=== PATIENT | female | born 1985 | race Caucasian/White ===

== ENCOUNTER 2018-06-25 15:25 | Inpatient (IN) | payer MEDICAID, SELFPAY ==
[2018-06-25 15:41] VITALS: BMI 41.0
[2018-06-25] MEDS: 0.9% Saline Lock 10 ML Syringe IV (16:45)
[2018-06-25 16:56] LABS: Hematocrit 36.9 % (37-47); Hemoglobin 12.1 g/dl (12.0-15.0); Mean Corp Hgb Conc 32.8 g/gl (32-36); Mean Corpuscular Hgb 27.6 pg (27.0-32.0); Mean Corpuscular Volume 84.1 fL (81-99); Mean Platelet Vol. 11.7 fl (6.2-12.0); Platelet Count 328 K/mm3 (150-450); RBC Distribution Width CV 14.7 % (11.6-14.6); RBC Distribution Width SD 43.6 fl (35.1-43.9); Red Blood Count 4.39 M/mm3 (4.2-5.4); Scan Indicated on CBC? Y/N NO; White Blood Count 17.7 K/mm3 (4.4-11.0)
[2018-06-25 17:01] LABS: Protein, Urine (Random) 19.9 mg/dL (<11.9); Protein:Creat Ratio 170 mg/g CRE (0-200)
[2018-06-25 17:12] LABS: Prothrombin Time (Protime)PT. 12.8 SECONDS (11.7-14.9)
[2018-06-25 17:13] LABS: Partial Thromboplast Time 29.6 Seconds (24.1-36.2)
[2018-06-25 17:28] LABS: AST(SGOT) 15 U/L (15-37); Alanine Aminotransfer ALT/SGPT 13 U/L (13-56); Creatinine, Serum 0.64 mg/dL (0.55-1.02); EST Glomerular Filtration Rate 114 mL/min (>60); Est Glom Filt Rate - Afr Amer 138 mL/min (>60); Estimated Creatinine Clearance 104.39 ml/min; Uric Acid 5.4 mg/dL (2.6-6.0)
[2018-06-25 17:32] LABS: Color, Urine Yellow (Yellow); Glucose, Dipstick Normal (Normal); Leukocyte Esterase-Dipstick 500 /ul (Negative); Nitrite-Dipstick Negative (Negative); Occult Blood-Urine 25 /ul (Negative); Protein-Dipstick Negative (Negative); Specific Gravity, Urine 1.015 (1.002-1.030); Urine Bilirubin Dipstick Negative (Negative); Urine Clarity Sl. Cloudy (Clear); Urine Urobilinogen Normal (Normal); Urine pH 6.5 (5.0 - 8.0)
--- NOTE | 2018-06-25 17:33 | PCM.HP.OB ---
- Problem List (1) Gestational hypertension affecting first Status: Acute History Date of Admission: 06/25/18 Final LISA: 07/12/18 Final LISA Source: US <20 weeks Gestational age: 37 Weeks and 4 Days History of this : This is a 32 year-old, G [2], P [0], at 37 weeks gestational age who presented to office today reporting that I just don't feel right. In office patient was noted to have elevated blood pressures 140s/90s, confirmed by True BP. Patient denies severe GARCIA or scotoma, also denies RUQ pain. Consultation with Dr. Posey OB back-up doctor done and decision made to progress forward with IOL at this time as patient meets criteria for GHTN. Allergies bee venom protein (honey bee) Allergy (Verified 06/25/18 15:47) Anaphylaxis latex Allergy (Verified 06/25/18 15:48) Rash Penicillins Allergy (Verified 06/25/18 15:46) Rash prednisone Allergy (Verified 06/25/18 15:47) Anaphylaxis Home Medications: Home Medications Famotidine [Pepcid] 20 mg PO BID 06/25/18 Loratadine [Claritin] 4 mg PO DAILY PRN PRN 06/25/18 Vits [Prenatabs FA ] 1 tab PO DAILY 06/25/18 Smoking Status: Current every day smoker Alcohol: None Number of Fetus(es): 1 Heart Tracing: Baseline 140, moderate variability, + accels, no decels noted. TOCO Analysis: Irregular ctx q 1-3 minutes on tocometer, not palpable at this time. Likely uterine irritability History Past Pregnancies: Past Pregnancies Delivery Date Name GA/Weeks Outcome Route Weight Infant Gender Labor Length Anesthesia Delivery Location Provider FOB SAB Labs: O positive, Abs Neg, HepBsAg Neg, HIV NR, Urine Culture Neg, CBC WNL x 2, Syphilis NR, Rubella Imm, Urine Tox = Neg, Early 1 hour = 143 (H), TSH = 1.5, 3 hour GCT = 76,115, 99, 46 (L), GBS Neg, Expected Delivery Method: Spontaneous Vaginal Describe any other labor & delivery plans:: Patient desires NCB - not planning on an epidural Number of Visits: 19 Review of Systems Constitutional: Denies: Chills, Fever, Weight Change HEENT: Denies: Head Aches, Sinus Congestion, Sinus Drainage Cardiovascular: Denies: Chest Pain, Palpitations Respiratory: Reports: Shortness of breath upon exertion. Denies: Cough, Shortness of breath at rest, Sputum production Gastrointestinal: Denies: Abdominal Pain, Nausea, Vomiting Genitourinary: Denies: Dysuria Musculoskeletal: Reports: Muscle pain - Rt. Side and Rt Flank pain, - - Symphysis and Pubic Bone Pain. Denies: Joint Pain, Joint Tenderness Skin: Denies: Rash, Wounds Neurological: Denies: Numbness, Tingling, Focal weakness Psychiatric: Denies: Anxiety, Depression, Homicidal Ideations, Suicidal Ideations Hematologic/ Lymphatic: Denies: Easy Bruising, Easy Bleeding Physical Exam Vitals: See Nursing Note for vitals - initial BP = 150/80s, most recent BP = 120s/60s. CBC WNL, LFTs WNL, Coags WNL, Urine P/C Ratio = 0.17 General: Alert, Oriented x3, No apparent distress HEENT: Atraumatic, Normocephalic. Negative for: Thyromegaly, Lymphadenopathy Cardiovascular: Regular rate, Regular Rhythm Lungs: Normal air movement Abdomen: Soft, Non Tender, Gravid Extremities:: Other - Trace non-pitting edema in LE noted Neurological: Cranial nerves II-XII grossly intact, Deep Tendon Reflexes 2+/4 and Symmetrical, Neuro grossly intact CYTOLOGY SUPERVISOR: Normal external genitalia. Negative for: Vulvar lesions Estimated gestational size: Appropriate for gestational size Presentation: Cephalic Cervix Dilation (cm): 0.5 Station: -3 Effacement (%): 50 Assessment/Plan All Active Problems Gestational hypertension affecting first (Acute) This is a 32 year-old, G [2], P [0], at 37 weeks gestational age, IOL for GHTN, Category I FHT. P: 1) Patient admitted for IOL - plan for Cytotec PV 25mcg per protocol 2) Pre-eclampsia ruled out at this time 3) Dr. Posey back-up physician notified of admission and is in agreement with plan 4) Reassess cervix PRN or with change to maternal or status Mindy Olmos APRN-CNNhi
[2018-06-25] MEDS: miSOPROStol 25 MCG TABLET VAGINAL ×2 (17:40→21:44)
[2018-06-25 17:46] LABS: Ketone-Dipstick 150 mg/dl (Negative)
[2018-06-25] MEDS: Lactated Ringers 500 ML 999 ML IV (17:53)
[2018-06-25] MEDS: Acetaminophen 325 MG Tablet PO (21:51)
--- NOTE | 2018-06-25 21:58 | PCM.PN.OB ---
Patient Problems: Active and Suspected Problems Gestational hypertension affecting first (Acute) Subjective: S: Patient sitting up in bed talking with partner and friend that are present in room. Patient reports that she is bored and wishes that baby was here already. Patient denies any severe pain at this time; reports that pain she feels down in lower pelvis is like menstrual cramping. Patient reports latex allergy - reaction rash. Patient is not a candidate for cervical medina bulb catheter placement as none are latex free. Consents to SVE at this time with option of membrane sweep and placement of 2nd cytotec dose Objective: See Nursing Notes - patient is normotensive and afebrile FHT baseline 150, moderate variability, + accels, no decels noted Ctx uterine irritability noted SVE = 50/-2, midposition, membrane sweep for + bloody show noted - Physical Exam General: Alert, Oriented x3, Cooperative HEENT: Atraumatic, Normocephalic Lungs: Normal air movement Abdomen: Soft, Non Tender, Gravid, Appropriate for Gestational Age - OP to LOP position by Yunier's noted Extremities: No edema, Capillary Refill Less than 3 Seconds Skin: No rashes, No breakdown Musculoskeletal: No Tenderness to Palpation of Joints or Extremities Neurological: Cranial nerves II-XII grossly intact Psych/Mental Status: Normal Affect, Appropriate, Anxious Weight: 231 lb 7.766 oz Body Mass Index (BMI) 41.0 Laboratory Tests Past 24 Hrs 06/25/18 06/25/18 06/25/18 16:30 16:30 16:30 WBC 17.7 H RBC 4.39 Hgb 12.1 Hct 36.9 L MCV 84.1 MCH 27.6 MCHC 32.8 RDW 14.7 H RDW Differential 43.6 Plt Count 328 MPV 11.7 PT 12.8 INR 1.0 APTT 29.6 Creatinine Estim Creat Clear Calc Est GFR (MDRD) Af Amer Est GFR (MDRD) Non-Af Uric Acid AST ALT Urine Color Urine Clarity Urine pH Ur Specific [place] Urine Protein Urine Glucose (UA) Urine Ketones Urine Occult Blood Urine Nitrite Urine Bilirubin Urine Urobilinogen Ur Leukocyte Esterase U Random Total Protein Urine Creatinine Protein/Creatinin Ratio Blood Type O POSITIVE Antibody Screen NEGATIVE 06/25/18 06/25/18 06/25/18 16:30 16:30 17:15 WBC RBC Hgb Hct MCV MCH MCHC RDW RDW Differential Plt Count MPV PT INR APTT Creatinine 0.64 Estim Creat Clear Calc 104.39 Est GFR (MDRD) Af Amer 138 Est GFR (MDRD) Non-Af 114 Uric Acid 5.4 AST 15 ALT 13 Urine Color Yellow Urine Clarity Sl. Cloudy Urine pH 6.5 Ur Specific [place] 1.015 Urine Protein Negative Urine Glucose (UA) Normal Urine Ketones 150 H Urine Occult Blood 25 H Urine Nitrite Negative Urine Bilirubin Negative Urine Urobilinogen Normal Ur Leukocyte Esterase 500 H U Random Total Protein 19.9 H Urine Creatinine 117.00 Protein/Creatinin Ratio 170 Blood Type Antibody Screen Medical Necessity - Tobacco Use Smoking Status: Current every day smoker Assessment/Plan All Active Problems Gestational hypertension affecting first (Acute) 32 y/o @ 37+4 weeks, IOL for GHTN, Cytotec Induction, Category I FHT P: 1) Continue present management plan - Cytotec 25mcg PV q 4 hours until cervix is ripened enough for initiation of pitocin as patient is not a candidate for cervical ripening by medina catheter given her latex allergy and no latex free catheters on unit with balloon larger than 5cc balloon 2) Reassess cervix PRN with change in maternal and status Mindy MARSH
[2018-06-26] MEDS: miSOPROStol 25 MCG TABLET VAGINAL ×2 (01:49→05:50)
--- NOTE | 2018-06-26 06:10 | PN.OBGYN_ITS ---
Patient Problems: Active and Suspected Problems Gestational hypertension affecting first (Acute) Subjective: Patient is resting in bed at this time. Denies GARCIA, scotoma or RUQ pain. Patient reports continued lower abdominal cramping after each cytotec dose was given. Patient consents to repeat SVE at this time. Objective: VSS, Afebrile. Recent BP = 115/69 FHT 130, moderate variability, + accels, no decels CTX irregular q 2-8 minutes, mildly palpable SVE = Unchanged 2/50/-2, moderately firm, anterior - Physical Exam General: Alert, Oriented x3, Cooperative Lungs: Normal air movement Cardiovascular: Regular rate, Regular Rhythm Abdomen: Soft, Non Tender, Gravid Extremities: No Calf Tenderness, Edema Neurological: Deep Tendon Reflexes 2+/4 and Symmetrical - no clonus noted Psych/Mental Status: Normal Affect Weight: 231 lb 7.766 oz Body Mass Index (BMI) 41.0 Intake and Output for Last 24 Hours 06/24/18 06/25/18 06/26/18 23:59 23:59 23:59 Intake Total 900 / 900 300 / 300 Output Total 450 / 450 400 / 400 Balance 450 / 450 -100 / -100 Laboratory Tests Past 24 Hrs 06/25/18 06/25/18 06/25/18 16:30 16:30 16:30 WBC 17.7 H RBC 4.39 Hgb 12.1 Hct 36.9 L MCV 84.1 MCH 27.6 MCHC 32.8 RDW 14.7 H RDW Differential 43.6 Plt Count 328 MPV 11.7 PT 12.8 INR 1.0 APTT 29.6 Creatinine Estim Creat Clear Calc Est GFR (MDRD) Af Amer Est GFR (MDRD) Non-Af Uric Acid AST ALT Urine Color Urine Clarity Urine pH Ur Specific [place] Urine Protein Urine Glucose (UA) Urine Ketones Urine Occult Blood Urine Nitrite Urine Bilirubin Urine Urobilinogen Ur Leukocyte Esterase U Random Total Protein Urine Creatinine Protein/Creatinin Ratio Blood Type O POSITIVE Antibody Screen NEGATIVE 06/25/18 06/25/18 06/25/18 16:30 16:30 17:15 WBC RBC Hgb Hct MCV MCH MCHC RDW RDW Differential Plt Count MPV PT INR APTT Creatinine 0.64 Estim Creat Clear Calc 104.39 Est GFR (MDRD) Af Amer 138 Est GFR (MDRD) Non-Af 114 Uric Acid 5.4 AST 15 ALT 13 Urine Color Yellow Urine Clarity Sl. Cloudy Urine pH 6.5 Ur Specific [place] 1.015 Urine Protein Negative Urine Glucose (UA) Normal Urine Ketones 150 H Urine Occult Blood 25 H Urine Nitrite Negative Urine Bilirubin Negative Urine Urobilinogen Normal Ur Leukocyte Esterase 500 H U Random Total Protein 19.9 H Urine Creatinine 117.00 Protein/Creatinin Ratio 170 Blood Type Antibody Screen Medical Necessity - Tobacco Use Smoking Status: Current every day smoker Assessment/Plan All Active Problems Gestational hypertension affecting first (Acute) 32 y/o @ 37+5 weeks, IOL for GHTN, Category I FHT P: 1) Placement of 4th Cytotec dose PV, consider initiation of IV Pitocin for labor augmentation after this next dose 2) Encourage PO hydration and movement with position changes 3) Report given to oncoming provider Mindy MARSH
--- NOTE | 2018-06-26 08:18 | PCM.PN.BLA ---
Progress Note At bedside to check on pt. She is doing well. Feeling some ctx's. Denies GARCIA, vision changes, upper abd pain, N/V. BP's have been normal. Category 1 tracing. Discussed option for medina bulb placement with pt. She has a latex allergy, and states when she uses latex condoms she has severe vaginal irritation that is intolerable for her. Only latex free medina available is 5cc. Discussed option of trying medina and the benefits of this. Pt desires to not have medina placed, and is okay with pitocin. Will start pitocin and then AROM when able. Pt still undecided on epidural. She is leaning towards no epidural.
[2018-06-26] MEDS: Lactated Ringers 1,000 ML 50 ML IV (09:34)
[2018-06-26] MEDS: Oxytocin 30 units/NS 500 ml 30 UNITS/500 ML IV.SOLN IV (09:37)
[2018-06-26] MEDS: Famotidine 20 MG Tablet PO ×2 (11:01→19:43)
--- NOTE | 2018-06-26 12:51 | PCM.PN.BLA ---
Progress Note At bedside to check on pt. She is feeling the ctx's, minimally uncomfortable. Pit at 10 mu/min. Category 1 tracing. Had 1 mild range BP, remaining normal. Discussed rechecking cvx and if still 2cm placing medina. Pt does not want medina at this time. Continue titrating pit at this time.
--- NOTE | 2018-06-26 17:24 | PCM.PN.BLA ---
Progress Note pt seen at bedside, very anxious. VE performed- 1.5/60/-2. Pt was admitted on 06/25/18 for GEST HTN IOL. pt has been seen in office with elevated BP on arrivals and then normal TRUBP after resting. pt here during IOL has had majority Normal range BPS- a few elevated during times of anxiety. Pt is asymptomatic- no headaches, visual changes, RUQ pain, No clonus and +2DTR. I explained options to patient. 1) Place medina catheter- stop pitocin for 2hours allow her to eat dinner and restart IOL- Pt does not HAVE Anaphylactic reaction to Latex- reports is able to blow up a balloon with mouth without rash/other side effect- only irritation with latex condoms. I explained this is NOT contraindication to use latex catheter. 2) Continue IOL with Pitocin 3) If repeat PRE E labs normal and remains asymptomatic with normal range BP may Dc home with return to L&D on friday06/28/18 for NST and BP check. Pt and would like to discuss options - pt reports is very anxious and feels like she may want to go home.
--- NOTE | 2018-06-26 17:40 | PCM.PN.BLA ---
Progress Note After patient and had time to discuss options pt has opted for dc home. pt understands that she will need to return to hospital on Friday06/28/18 at 9am for NST and BP check. Will check PRE E labs today prior to her dc home. PRE E s/sx were reviewed with patient by myself and she understands if she were to experience anything that she should return to hospital. Pt reports she feels less anxious now as she was not comfortable with IOL at this time. If dc'd home from hospital friday after NST then she understands she will be following up in office early next week.
[2018-06-26 18:16] LABS: Hematocrit 38.1 % (37-47); Hemoglobin 12.3 g/dl (12.0-15.0); Mean Corp Hgb Conc 32.3 g/gl (32-36); Mean Corpuscular Volume 83.6 fL (81-99); Mean Platelet Vol. 11.2 fl (6.2-12.0); Platelet Count 318 K/mm3 (150-450); RBC Distribution Width CV 14.6 % (11.6-14.6); RBC Distribution Width SD 44.5 fl (35.1-43.9); Red Blood Count 4.56 M/mm3 (4.2-5.4)
[2018-06-26 18:17] LABS: Scan Indicated on CBC? Y/N NO
[2018-06-26 18:25] LABS: Prothrombin Time (Protime)PT. 13.4 SECONDS (11.7-14.9)
[2018-06-26 18:26] LABS: Partial Thromboplast Time 29.2 Seconds (24.1-36.2)
[2018-06-26 18:28] LABS: Protein, Urine (Random) 24.4 mg/dL (<11.9); Protein:Creat Ratio 169 mg/g CRE (0-200)
[2018-06-26 18:41] LABS: AST(SGOT) 12 U/L (15-37); Alanine Aminotransfer ALT/SGPT 11 U/L (13-56); Creatinine, Serum 0.72 mg/dL (0.55-1.02); EST Glomerular Filtration Rate 100 mL/min (>60); Est Glom Filt Rate - Afr Amer 121 mL/min (>60); Estimated Creatinine Clearance 92.79 ml/min; Uric Acid 5.6 mg/dL (2.6-6.0)
[2018-06-26] MEDS: Acetaminophen 325 MG Tablet PO (19:43)
--- NOTE | 2018-06-27 06:40 | PN.OBGYN_ITS ---
Patient Problems: Active and Suspected Problems Gestational hypertension affecting first (Acute) Subjective: pt seen at bedside, doing well. pt is requesting Dc at this time. pt is declining IOL. pt denies CP, Headaches, visual changes, RUQ pain. pt verbalized understanding of smoking cessation, rest and if symptoms arise she needs to return to hospital immediately. Pt understands [facility] for BP check and OB exam. - Physical Exam General: Alert, Oriented x3 Neurological: Cranial nerves II-XII grossly intact Weight: 105 kg Body Mass Index (BMI) 41.0 Intake and Output for Last 24 Hours 06/25/18 06/26/18 06/27/18 23:59 23:59 23:59 Intake Total 900 / 900 1800 / 1800 Output Total 450 / 450 500 / 500 Balance 450 / 450 1300 / 1300 Laboratory Tests Past 24 Hrs 06/26/18 06/26/18 06/26/18 17:50 17:50 17:50 WBC 17.0 H RBC 4.56 Hgb 12.3 Hct 38.1 MCV 83.6 MCH 27.0 MCHC 32.3 RDW 14.6 RDW Differential 44.5 H Plt Count 318 MPV 11.2 PT 13.4 INR 1.0 APTT 29.2 Creatinine Estim Creat Clear Calc Est GFR (MDRD) Af Amer Est GFR (MDRD) Non-Af Uric Acid AST ALT U Random Total Protein 24.4 H Urine Creatinine 144.00 Protein/Creatinin Ratio 169 06/26/18 17:50 WBC RBC Hgb Hct MCV MCH MCHC RDW RDW Differential Plt Count MPV PT INR APTT Creatinine 0.72 Estim Creat Clear Calc 92.79 Est GFR (MDRD) Af Amer 121 Est GFR (MDRD) Non-Af 100 Uric Acid 5.6 AST 12 L ALT 11 L U Random Total Protein Urine Creatinine Protein/Creatinin Ratio Medical Necessity - Tobacco Use Smoking Status: Current every day smoker Assessment/Plan All Active Problems Gestational hypertension affecting first (Acute) 32yo @ 37+ wks gestation with GEST HTN - Attempted IOL - not progressing well and declining medina bulb for mechanical dilation. Pt declining further IOL at this time and requesting DC home. 1) monitored BPs overnight with NST today- BPs normal overnight and pt remains asymptomatic. 2) PRE E labs normal 3) Discussed with patient will need to come to office Friday06/29/18 at 9am for OB/BP check 4) S/Sx of pre e reviewed- pt will return to hospital if any concerns 5) DC HOME today 6) advised to avoid smoking
[2018-06-27 06:54] VITALS: BP 114/56; PULSE 82; RESP 16; TEMP 37.6; O2SAT 99
== END 2018-06-27 07:25 | disposition home or self-care (01) | DRG 566 ==
PROVIDERS: Advanced Practice Midwife; Obstetrics & Gynecology; Admitting Provider Obstetrics & Gynecology; Visit Provider Obstetrics & Gynecology
DX: O13.3 Gestational [pregnancy-induced] hypertension without significant proteinuria, third trimester (principal); Z3A.37 37 weeks gestation of pregnancy; O99.333 Smoking (tobacco) complicating pregnancy, third trimester; F17.200 Nicotine dependence, unspecified, uncomplicated; O61.0 Failed medical induction of labor
CPT/HCPCS: 59025; 59050; 81002; 82565; 82570; 84156; 84450; 84460; 84550; 85027; 85610; 85730; 86850; 86900; J7120; A4216

== ENCOUNTER 2018-07-07 20:00 | Inpatient (IN) | payer MEDICAID, SELFPAY ==
[2018-07-07 20:26] VITALS: BMI 41.0
[2018-07-07] MEDS: 0.9% Normal Saline 100 ML IV.SOLN. INTRA-UTER (20:56)
--- NOTE | 2018-07-07 20:59 | HP.PCM_ITS ---
History Date of Admission: 06/25/18 Final LISA: 07/12/18 Final LISA Source: US <20 weeks Gestational age: 39 Weeks and 2 Days History of this : This is a 32 year-old, @ 39.2 wks here for IOL for Gestational HTN. pt was declining IOL at earlier time. Allergies bee venom protein (honey bee) Allergy (Verified 06/25/18 15:47) Anaphylaxis latex Allergy (Verified 06/25/18 18:07) Rash Penicillins Allergy (Verified 06/25/18 15:46) Rash prednisone Allergy (Verified 06/25/18 15:47) Anaphylaxis Home Medications: Home Medications Famotidine [Pepcid] 20 mg PO BID 06/25/18 Loratadine [Claritin] 4 mg PO DAILY PRN PRN 06/25/18 Vits [Prenatabs FA ] 1 tab PO DAILY 06/25/18 Smoking Status: Current every day smoker Alcohol: None Number of Fetus(es): 1 Heart Tracin mod seda, +accels no decels TOCO Analysis: occasional History Past Pregnancies: Past Pregnancies Delivery Date Name GA/Weeks Outcome Route Weight Infant Gender Labor Length Anesthesia Delivery Location Provider FOB Labs: GBS neg, Syphilis neg, rub imm, O+, Hep b Neg, HIV NR Expected Delivery Method: Spontaneous Vaginal Review of Systems Eyes: Denies: Blurred vision, Vision Change HEENT: Denies: Head Aches Physical Exam General: Alert, Oriented x3 Abdomen: Soft, Non Tender, Gravid Neurological: Cranial nerves II-XII grossly intact PATIENT RELATIONS LIAISON: Normal external genitalia Estimated gestational size: Appropriate for gestational size Presentation: Cephalic Cervix Dilation (cm): 1 Station: -3 Effacement (%): 60 Assessment/Plan All Active Problems Gestational hypertension affecting first (Acute) This is a 32 year-old, G 2P0 @ 39.2, IOL for gestational HTN 1) admit to L&D 2) monitor FHR/TOCO 3) Anticipate 4) CYTOTEC/TORRES 5) Epidural if requested for pain 6) Monitor BPs
[2018-07-07] MEDS: 0.9% Saline Lock 10 ML Syringe IV (21:10)
[2018-07-07 21:40] LABS: Hematocrit 36.9 % (37-47); Hemoglobin 11.8 g/dl (12.0-15.0); Mean Corpuscular Hgb 26.6 pg (27.0-32.0); Mean Corpuscular Volume 83.1 fL (81-99); Mean Platelet Vol. 11.1 fl (6.2-12.0); Platelet Count 337 K/mm3 (150-450); RBC Distribution Width CV 14.9 % (11.6-14.6); RBC Distribution Width SD 45.3 fl (35.1-43.9); Red Blood Count 4.44 M/mm3 (4.2-5.4); White Blood Count 15.8 K/mm3 (4.4-11.0)
[2018-07-07] MEDS: miSOPROStol 25 MCG TABLET PO (21:41)
[2018-07-07 21:44] LABS: Scan Indicated on CBC? Y/N NO
[2018-07-07] MEDS: Acetaminophen 325 MG Tablet PO (22:40)
[2018-07-08] VITALS (10 sets, daily range): BP systolic 119–142; BP diastolic 64–82; PULSE 93–113; RESP 16–22; TEMP 36.4–37.4; O2SAT 94–98
[2018-07-08] MEDS: Oxytocin 30 units/NS 500 ml 30 UNITS/500 ML IV.SOLN IV (03:47)
[2018-07-08] MEDS: Lactated Ringers 1,000 ML 50 ML IV ×2 (03:47→15:20)
--- NOTE | 2018-07-08 09:17 | PCM.PN.OB ---
Subjective: Patient doing well, family at bedside. Discomfort with contractions but coping well. Objective: FHT 135, moderate variability, accels, no decels, Category 1 TOCO: unable to trace contractions or palpate. Patient visibly in discomfort with contractions. AROM for clear fluid, IUPC placed Cervix: 5cm/80%/-2, head well applied. - Physical Exam Weight: 231 lb 7.766 oz Body Mass Index (BMI) 41.0 Laboratory Tests Past 24 Hrs 07/07/18 07/07/18 21:10 21:10 WBC 15.8 H RBC 4.44 Hgb 11.8 L Hct 36.9 L MCV 83.1 MCH 26.6 L MCHC 32.0 RDW 14.9 H RDW Differential 45.3 H Plt Count 337 MPV 11.1 Blood Type O POSITIVE Antibody Screen NEGATIVE Medical Necessity - Tobacco Use Smoking Status: Current every day smoker Assessment/Plan All Active Problems (Last Updated 07/07/18 @ 20:57 by Kristel Serrano MD) Gestational hypertension affecting first (Acute) A: Active labor, progressing Category 1 FHT P: 1) Continue with active management 2) Reviewed option for IUPC due to inability to trace uterine contractions and safety of Pitocin, patient agreed to procedure and IUPC placement. 3) notified of patient status. 4) Desires nitrous oxide. Epidural at patient request.
[2018-07-08] MEDS: Nalbuphine 10 MG/ML Ampul IV (11:20)
[2018-07-08] MEDS: fentaNYL-bupivacaine (epidural) 100 ML BAG EPIDURAL (12:35)
--- NOTE | 2018-07-08 12:55 | PCM.PN.OB ---
Subjective: Doing well with epidural, resting in bed. Family at bedside. Objective: FHT: 120, moderate varaiblity, accels, occassional variable decel, Category 2 FHT TOCO: every 2-3 minutes, adequate. Cervix 6cm/90%/-2, ROT. - Physical Exam Weight: 231 lb 7.766 oz Body Mass Index (BMI) 41.0 Laboratory Tests Past 24 Hrs 07/07/18 07/07/18 21:10 21:10 WBC 15.8 H RBC 4.44 Hgb 11.8 L Hct 36.9 L MCV 83.1 MCH 26.6 L MCHC 32.0 RDW 14.9 H RDW Differential 45.3 H Plt Count 337 MPV 11.1 Blood Type O POSITIVE Antibody Screen NEGATIVE Medical Necessity - Tobacco Use Smoking Status: Current every day smoker Assessment/Plan All Active Problems (Last Updated 07/07/18 @ 20:57 by Kristel Serrano MD) Gestational hypertension affecting first (Acute) A: Active labor, progressing Category 2 FHT P: 1) Continue with active management 2) Epidural effective 3) notified of patient status.
[2018-07-08] MEDS: Lactated Ringers 1,000 ML 999 ML IV (17:30)
--- NOTE | 2018-07-08 18:28 | PCM.PN.BLA ---
Progress Note Present at bedside with patient and FOB after 3rd episode of a prolonged deceleration in the heart rate, followed by marked variability with decelerations to 90 bpm. Pit was turned off, O2 on, and position changes started. FHT recovered to 120/mod seda/no accels/no decels. Cvx 7/80/-1. Discussed with patient and FOB that I recommend a section for intolerance to labor given she has had 3 episodes of bradycardia. Unable to titrate pitocin at this time. Discussed option to continue with induction, with the risk of needing an emergent section. Reviewed risks and benefits of a primary section, and of continuing with attempting an induction. Patient and FOB agreeable to for intolerance to labor.
[2018-07-08] MEDS: Sodium Citrate/Citric Acid 30 ML UDC PO (18:35)
[2018-07-08] MEDS: Oxytocin 30 units/NS 500 ml 30 UNITS/500 ML IV.SOLN 167 UNITS IV (19:17)
--- NOTE | 2018-07-08 20:10 | PLAC_PTH ---
PATIENT: ROWENA DE PAZ LOC: [facility] U#:[id number] AGE/SX: 32/F ROOM: WP010 RE07/07/[address]: Dr. Keira Bardales DO : 1985 BED: 1 DIS: 07/10/2018 SPEC #: [id number] RECD: 07/09/18 02:17 STATUS: KARISSA REOlivia #: [id number] RENUKA: 07/08/18 20:[address]: Keira Bardales DEPT: SURGICAL PATHOLOGY RECD BY: Tu Doran ENTERED: 07/09/18 11:15 SP TYPE: PLACENTA OTHR DR: No Primary Care Phys Tissues: Placenta, NOS Procedures: Surgery Specimen Level V HEADER OPERATION: section PRE-OP DIAGNOSIS: intolerance to labor, PLTCS TISSUE SUBMITTED: Placenta MICROSCOPIC DIAGNOSIS August placenta (543 gm): Umbilical cord - trivascular with no inflammation. Placental membranes - mild acute decidual inflammation. Placental disc - increased intraparenchymal fibrin plaques, intravillous congestion and intervillous congestion. AM:ben 07/13/18 MICROSCOPIC DESCRIPTION Slides are reviewed. GROSS DESCRIPTION SPECIMEN: PLACENTA / CLINICAL INFORMATION: A. Weight: 3.195 kg B. Gestational Age: 39 weeks C. Sex: Male PLACENTAL WEIGHT (POST FIXATION): 543 gm PLACENTAL DIMENSIONS: 18 x 16 x 3.5 cm PLACENTAL SHAPE: Usual ovoid PLACENTAL WEIGHT FOR GESTATIONAL AGE: Within 10-99th percentile MEMBRANES - Present A. Insertion: Marginal B. Site of rupture from edge: At edge of placental disc C. Color of membrane: Whalen-kelsey D. Abnormalities: None UMBILICAL CORD - Present A. Color: Whalen-kelsey B. Insertion: Near central C. Length: 25 cm D. Diameter: 1.2 cm E. Number of vessels: Three F. Abnormalities: None PLACENTAL DISC - Present A. Color of surface: Whalen-kelsey B. surface abnormalities: None C. Maternal cotyledons: Intact with minimal tears D. Attached retro placental clot: No clot E. Cut surface: Dark red and spongy F. Lesions: Serial section reveal a firm, whalen-white lesion at the edge of placental disc measuring 3 x 2 x 1.2 cm. G. Separate clot: Absent SECTIONS SUBMITTED: 1. Membrane roll and umbilical cord ( end notched) 2. Placental disc, and maternal surfaces, lesion 3. Placental disc, and maternal surfaces 4. Placental disc, and maternal surfaces AM:ben 07/10/18 TC:5 CPT: 13275
--- NOTE | 2018-07-08 20:30 | OP.PCM_ITS ---
Problem List (1) intolerance to labor, delivered, current hospitalization Status: Acute (2) Gestational hypertension affecting first Status: Acute Report of Operation Date of Procedure: 07/08/18 Pre-Operative Diagnosis: 39 wk gestation, gHTN, intolerance to labor Post-Operative Diagnosis: As above Surgery/Procedure Performed:: PLTCS via pfanennstiel incision Description of Surgical Findings:: Normal uterus and bilateral adnexa. Fetus in vertex presentation. Clear fluid. Intact placenta that was normal appearing with a 3 vessel cord Indications: The patient was induced at 39 wks for gHTN. She was a medina and cytotec induction, followed by pitocin and AROM. She made it to 7 cm dilated. She had 3 episodes of prolonged heart rate decelerations. Unable to titrate pitocin given intolerance to labor. superintendent communications: Sara Bacon Type of Anesthesia:: Epidural Estimated Blood Loss (mL): 500 Fluids Replaced: 900 Description of Procedure: Patient was taken to the operating where epidural anesthesia was found to be adequate. She was prepped and draped in the usual sterile fashion. A pfannenstiel incision was made with a scalpel and carried down to the fascia. A fascial incision was made, and the fascia was extended laterally using Flower scissors. Linden clamps were then used to elevated the fascia superiorly and using the Bovie cautery, the fascia was dissected off of the rectus muscles. The same was done inferiorly. The rectus muscles were then in the midline. The peritoneum was entered sharply, and extended superior and inferior with good visualization of the bladder. A low transverse incision was made on the uterus. The fetus was delivered in vertex position. The cord was clamped and cut after a 60 sec delay and handed off to nursing staff. The placenta was removed with manual extraction and the uterus cleared of all clot and debris. The bilateral adnexa were noted to be normal. The uterus was closed with vicryl in 2 layers, the first in a running locked fashion. The incision was inspected and noted to be hemostatic. The fascia was then closed with vicryl. The subcutaneous layer was irrigated, and closed with vicryl. The skin was then closed in a subcuticular fashion. Instrument counts were correct. The patient was taken to the recovery room in good condition. - Complications None - Admit VTE Documentation VTE Present on Admission: No VTE Mechan Device Prophylaxis: SCD's VTE Pharm Prophylaxis ordered?: No Delivery Classification: MARY Gestational age: 39w3d Indications: intolerance to labor Amniotic Membrane Rupture Type: Artificial Amniotic Fluid Description: Clear Placenta Disposition: Sent to Pathology Drain: Medina to straight drain Fluids Replaced: 900 Cord Entanglement: None Cord Vessel Description: 3 Vessels Esitmated Blood Loss (ml): 500 Gender: Male Delayed cord clamping: Yes Pre-op Antibiotic Given: Clindamycin 600mg IV x1 and Gentamicin 1.5mg/kg IV x1 Pt instructed on risks of surgery: Bleeding, Infection, Injury to surrounding structure(s) including bowel and bladder Complications: None - Admit VTE Documentation VTE Present on Admission: No VTE Mechan Device Prophylaxis: SCD's VTE Pharm Prophylaxis ordered?: Yes Baby B - Information Amniotic Membrane Rupture Type: Spontaneous Presentation: Vertex - Operative Information Cord Entanglement: None Cord Vessel Description: 3 Vessels B gender: Male (1 minute): 9 (5 minute): 9
[2018-07-09] VITALS (16 sets, daily range): BP systolic 99–142; BP diastolic 60–89; PULSE 77–97; RESP 14–20; TEMP 36.1–36.9; O2SAT 95–99
--- NOTE | 2018-07-09 00:15 | NURSING ---
Epidural catheter removed, blue tip intact. No bleeding noted. Gauze 4x4 and latex free tape applied over site. Pt. tolerated well.
[2018-07-09] MEDS: Ketorolac 30 MG/ML Syringe IV ×5 (00:48→23:51)
[2018-07-09 02:18] LABS: Pathology Specimen OB SEE PATHOLOGY REPORT
[2018-07-09] MEDS: Acetaminophen 500 MG Tablet 1000 MG PO (04:19)
[2018-07-09] MEDS: Lactated Ringers 1,000 ML 100 ML IV (05:35)
[2018-07-09 06:16] LABS: Hematocrit 25.2 % (37-47); Hemoglobin 7.9 g/dl (12.0-15.0); Mean Corp Hgb Conc 31.3 g/gl (32-36); Mean Corpuscular Hgb 26.9 pg (27.0-32.0); Mean Corpuscular Volume 85.7 fL (81-99); Mean Platelet Vol. 11.5 fl (6.2-12.0); Platelet Count 203 K/mm3 (150-450); RBC Distribution Width CV 14.7 % (11.6-14.6); RBC Distribution Width SD 44.2 fl (35.1-43.9); Red Blood Count 2.94 M/mm3 (4.2-5.4); White Blood Count 13.5 K/mm3 (4.4-11.0)
[2018-07-09 06:20] LABS: Scan Indicated on CBC? Y/N NO
--- NOTE | 2018-07-09 08:04 | PN.OBGYN_ITS ---
Patient Problems: Active and Suspected Problems (Last Updated 07/07/18 @ 20:57 by Kristel Duckworth MD) intolerance to labor, delivered, current hospitalization (Acute) Subjective: Patient doing well this morning. Tolerating reg diet without nausea or vomiting. Has not yet ambulated. Medina in place. . Denies lightheadedness, dizziness, CP, SOB, uncontrolled pain, leg pain. Pain is well controlled. Lochia normal. - Physical Exam General: Alert, No apparent distress HEENT: Atraumatic Lungs: - - No increased resp effort Abdomen: Soft, Non Tender, Non-Distended, - - Dressing in place over incision and c/d/i Extremities: No edema, No Calf Tenderness Skin: No rashes Neurological: Neuro grossly intact Psych/Mental Status: Normal Affect, Appropriate Vital Signs Temp Pulse Resp BP Pulse Ox 98.4 F 84 17 99/60 96 07/09/18 04:14 07/09/18 07:37 07/09/18 07:37 07/09/18 04:14 07/09/18 07:37 Oxygen Delivery Method Room Air Weight: 231 lb 7.766 oz Body Mass Index (BMI) 41.0 Intake and Output for Last 24 Hours 07/07/18 07/08/18 07/09/18 23:59 23:59 23:59 Intake Total 4901 / 4901 2181 / 2181 Output Total 1350 / 1350 1400 / 1400 Balance 3551 / 3551 781 / 781 Laboratory Tests Past 24 Hrs 07/09/18 05:34 WBC 13.5 H RBC 2.94 L Hgb 7.9 L Hct 25.2 L MCV 85.7 MCH 26.9 L MCHC 31.3 L RDW 14.7 H RDW Differential 44.2 H Plt Count 203 MPV 11.5 Medical Necessity - Tobacco Use Smoking Status: Current every day smoker Assessment/Plan All Active Problems (Last Updated 07/07/18 @ 20:57 by Kristel Serrano MD) Gestational hypertension affecting first (Acute) intolerance to labor, delivered, current hospitalization (Acute) POD#1 s/p PLTCS for intolerance to labor after IOL for gHTN - gHTN: Continue to monitor BP - AF, VSS - Pain controlled - - Hgb 7.9 this AM. Pt has no symptoms of anemia but has not ambulated yet. Will repeat in AM - D/c medina and encourage ambulation - Dispo: Routine post-op care
--- NOTE | 2018-07-09 08:06 | DCINST_ITS ---
Discharge Diet: No Restrictions Discharge Activity: May not drive while taking narcotic pain medications., May Shower May shower in (days): 0 May resume sexual activity in: 4-6 weeks Weight Bearing Status: Weight bearing as tolerated Lifting Restrictions: No lifting > 25 pounds Call your doctor if your incision/area has: Sudden Increased Bleeding, Increased Pain/ Swelling, Increased Redness, Foul Smelling Discharge Call your doctor if you observe: Fever of 101 or Higher, Inability to urinate, Inability to have a bowel movement, Using more than one pad per hour, Shortness of breath, Dizziness, Fainting spells, Chest pain, Increased palpitations (irregular heartbeat), Calf discomfort, Uncontrolled pain Suture Line Care: Avoid Pulling/Pushing Remove Dressing in (days):: 5 - 5 days from section Cleanse incision/area with: Soap & Water Instructions: Discharge Instructions for Section (), After a Additional Instructions: If you experience any of the following, contact your healthcare provider. * Bleeding that soaks a pad every hour for 2 hours * Fever 100.4 or higher * Unrelieved incision or abdominal pain * Swelling, redness, discharge or bleeding from your incision or episiotomy site * Your incision begins to separate * Problems urinating (including inability to urinate or burning while urinating). * Visual changes * Severe headache * Flu-like symptoms * Pain or redness in one of both of your breasts * Pain, warmth, tenderness or swelling in your legs, especially the calf area * Frequent nausea and vomiting * Symptoms of depression or anxiety If you experience any of the following, call 911 or go to the nearest Emergency Room. * Chest pain * Problems breathing * Seizure activity * Partial or complete paralysis of a body part, slurred speech, weakness or drooping of the face, or a sudden inability to walk or hold your balance Allergies/Adverse Reactions: Allergies bee venom protein (honey bee) Allergy (Verified 06/25/18 15:47) Anaphylaxis latex Allergy (Verified 06/25/18 18:07) Rash Penicillins Allergy (Verified 06/25/18 15:46) Rash prednisone Allergy (Verified 06/25/18 15:47) Anaphylaxis Medications to take at Discharge Famotidine [Pepcid] 20 mg PO BID 06/25/18 Loratadine [Claritin] 4 mg PO DAILY PRN PRN 06/25/18 Vits [Prenatabs FA ] 1 tab PO DAILY 06/25/18 Follow-Up: Call to make an appointment with your doctor for an incision check in 1-2 weeks. You will also need a 6 week post- follow up appointment. Test results from this visit will be discussed in further detail at your follow- up appointment, if applicable. Please Follow Up With: Keira Bardales, When: 1 week for incision check. 6 weeks for appointment Primary Care Physician: Care Physician,No Primary [Primary Care Provider] -
[2018-07-09] MEDS: Enoxaparin 40 MG/0.4 ML Syringe SC (08:44)
[2018-07-09] MEDS: Famotidine 20 MG Tablet PO ×2 (08:44→21:45)
--- NOTE | 2018-07-09 12:12 | CASEMGMT ---
Addendum entered and electronically signed by Paloma Hung 07/28/18 10:17: Reviewed and approve SYSTEMS REQUIREMENTS PLANNER student rn intern documentation below. At time of assessment, direct consultation regarding outcome of assessment occurred between rn intern and this keno writer. -MADIHA Hdez, PULP ROLLER Original Note: Social Work Labor and Delivery Date of referral:07/09/18 time of referral: 0836 referred by: Dr. Keira Bardales Date of intervention: 07/09/18 Time of intervention: 1110am Reason for Referral: history of anxiety History obtained from: medical record, mother of baby Sylvester Maloney (MOB) Household composition: MOB lives with Father of baby Tu Castrejon (FOB). MOB reports to be no history of domestic violence. Patients parent/guardian status: MOB and FOB have known each other for 11 years but have been together for 3 years. MOB and FOB do not have any other children Medical History: WALDO is to 1 after the of their baby boy who has yet to be named. MOB started PNC at 9 weeks. Baby boy was born on 07/08/18 at 7lbs 1oz and scores of 9 and 9. Educational Status: MOB has GED. Both parents confirmed to be able to read, write, and comprehend. Financial Status: MOB is currently unemployed. FOB works for [employer] in [place]. Infant Supplies: MOB and FOB report to be prepared with supplies such as bassinet, crib, car seat, clothing, diapers, wipes, and planning to get a breast pump. Childcare/Givers: MOB and FOB will be primary caregivers. FOB's mother and MOB's mother, sister, and aunt will be supplemental caregivers. Transportation: MOB and FOB denied any issues with transportation. Programs/Agencies involved: MOB has healthcare through job and Family Services. MOB and FOB have [place] application and plan to have appointment next week. MOB denied [facility] referral and plans to contact [facility] herself. Children Services/Legal Issues: MOB denied any legal issues or history with children services for self and FOB. Behavioral Health Issues: Mental Health: MOB does not identify with any formal diagnoses. MOB reported to have anxiety at times, especially during labor due to fear of pain and needles and being induced. MOB denies suicidal ideations past or present. Substance Use History: MOB denied any history or current substance use. MOB does smoke cigarettes. Family History: MOB's brother had suicidal ideations during March 2018. Drug Screens: MOB tested negative at [facility] visit on 12/11/17. Family Social/Stressors: MOB was stressed at the time of brother suicidal thoughts and reports that her brother has since then been doing better and their relationship is improving. Support Systems: MOB identified FOB to be main support system. MOB's mother, sister, aunt, and grandma are also supports. FOB's mother is another support. PDD/Shaken Baby/ Safe Sleeping: MOB and FOB reviewed PPD, Safe sleeping, and shaken baby with social group worker rn intern. Both parents understood and acknowledged information. ASSESSMENT: MOB and FOB were in room together with baby boy laying on FOB's chest. FOB and MOB were attentive and engaged in conversation with social group worker rn intern for duration of conversation regarding general information. FOB left room so MOB could speak privately. MOB spoke about brother with suicidal ideations and reports that he has since gotten his life together and their personal relationship has improved. MOB also reported to have perfect relationship with other brother. MOB's anxiety was increased during first attempt of induction as MOB felt baby was not ready and her body was not ready. MOB reported fear of needles and pain did not help anxiety during labor. MOB did end up receiving an epidural and was grateful to have done so. MOB reported lessened anxiety since delivery. During , MOB experienced pain with pelvic bone and is thankful to have lessened pain and plans to start physical therapy for healing. MOB reported to have been told unable to get and so was a surprise but welcomed. MOB reported to be feeling good and supported by FOB and family members and is eager to go home. PLAN: MOB to go home with baby. PPD packet, WIC/HMG information, and [employer] packet provided. Food card application also provided. No other services indicated or requested at this time. -Reba Petersen, SYSTEMS REQUIREMENTS PLANNER Student Marine Underwriter.
[2018-07-09] MEDS: Senna/Docusate Sodium 1 Tablet PO (15:46)
[2018-07-09] MEDS: 0.9% Saline Lock 10 ML Syringe IV ×2 (18:00→23:51)
[2018-07-09] MEDS: oxyCODONE 5 MG Tablet PO (19:23)
[2018-07-10 04:35] VITALS: BP 134/86; PULSE 85; RESP 14; TEMP 36.5; O2SAT 99
[2018-07-10] MEDS: oxyCODONE 5 MG Tablet PO ×2 (04:45→10:33)
[2018-07-10 04:51] LABS: Hematocrit 31.2 % (37-47); Mean Corp Hgb Conc 32.1 g/gl (32-36); Mean Corpuscular Volume 84.3 fL (81-99); Mean Platelet Vol. 10.9 fl (6.2-12.0); Platelet Count 267 K/mm3 (150-450); RBC Distribution Width CV 14.8 % (11.6-14.6); Scan Indicated on CBC? Y/N NO; White Blood Count 14.9 K/mm3 (4.4-11.0)
[2018-07-10] MEDS: 0.9% Saline Lock 10 ML Syringe IV (06:56)
[2018-07-10 07:41] VITALS: BP 137/92; PULSE 89; RESP 18; TEMP 36.8; O2SAT 98
[2018-07-10] MEDS: Ibuprofen 600 MG Tablet PO (07:58)
--- NOTE | 2018-07-10 08:07 | PN.OBGYN_ITS ---
Patient Problems: Active and Suspected Problems (Last Updated 07/07/18 @ 20:57 by Kristel Duckworth MD) intolerance to labor, delivered, current hospitalization (Acute) Subjective: Patient doing well. Tolerating a regular diet without nausea or vomiting. Ambulating and voiding without difficulty. . Lochia decreasing. Denies lightheadedness, dizziness, CP, SOB, leg pain. Pain is well controlled. She feels ready to go home. - Physical Exam General: Alert, No apparent distress HEENT: Atraumatic Lungs: - - No increased resp effort Abdomen: Soft, Non Tender, - - Fundus difficult to assess, dressing in place and c/d/i Extremities: No edema, No Calf Tenderness Skin: No rashes Neurological: Neuro grossly intact Psych/Mental Status: Normal Affect, Appropriate Vital Signs Temp Pulse Resp BP Pulse Ox 98.3 F 89 18 137/92 H 98 07/10/18 07:41 07/10/18 07:41 07/10/18 07:41 07/10/18 07:41 07/10/18 07:41 Oxygen Delivery Method Room Air Weight: 231 lb 7.766 oz Body Mass Index (BMI) 41.0 Intake and Output for Last 24 Hours 07/08/18 07/09/18 07/10/18 23:59 23:59 23:59 Intake Total 4901 / 4901 2181 / 2181 Output Total 1350 / 1350 2550 / 2550 Balance 3551 / 3551 -369 / -369 Laboratory Tests Past 24 Hrs 07/10/18 04:37 WBC 14.9 H RBC 3.70 L Hgb 10.0 L Hct 31.2 L MCV 84.3 MCH 27.0 MCHC 32.1 RDW 14.8 H RDW Differential 44.0 H Plt Count 267 MPV 10.9 Medical Necessity - Tobacco Use Smoking Status: Current every day smoker Assessment/Plan All Active Problems (Last Updated 07/07/18 @ 20:57 by Kristel Serrano MD) Gestational hypertension affecting first (Acute) intolerance to labor, delivered, current hospitalization (Acute) POD#2 s/p PLTCS for intolerance to labor - gHTN: 1 mild range BP. Otherwise normal - Doing well and desires to go home - - Dispo: D/c home today to follow up in 1 week for BP check and incision check
[2018-07-10] MEDS: Enoxaparin 40 MG/0.4 ML Syringe SC (09:58)
[2018-07-10] MEDS: Famotidine 20 MG Tablet PO (10:33)
[2018-07-10 13:53] VITALS: BP 130/79; PULSE 71; RESP 18; TEMP 36.6; O2SAT 98
--- NOTE | 2018-07-14 12:57 | DS.PCM_ITS ---
Discharge Date and Diagnosis Date of Admission: 07/07/18 Date of Discharge: 07/10/18 Hospital Course and Treatment Consultations 07/07/18 20:11 Consult: Anesthesia Routine Comment: Reason For Exam: Operations: - - PLTCS Summary of Care Provided: The patient is a 32 year old F who presented at 38 wks gestation for IOL for cHTN. She was a medina, cytotec induction. She was then started on pitocin. She p rogressed to 7 cm dilated. Due to intolerance to labor, she had a PLTCS. She did well post-op and was discharged home in good condition on POD#2. Her BP's were mostly normal . - Physical Exam Vital Signs Temp Pulse Resp BP Pulse Ox 97.9 F 71 18 130/79 H 98 07/10/18 13:53 07/10/18 13:53 07/10/18 13:53 07/10/18 13:53 07/10/18 13:53 Oxygen Delivery Method Room Air Weight: 231 lb 7.766 oz Body Mass Index (BMI) 41.0 Discharge Diet: No Restrictions Discharge Activity: May not drive while taking narcotic pain medications., May Shower May shower in (days): 0 May resume sexual activity in: 4-6 weeks Weight Bearing Status: Weight bearing as tolerated Call your doctor if your incision/area has: Sudden Increased Bleeding, Increased Pain/ Swelling, Increased Redness, Foul Smelling Discharge Call your doctor if you observe: Fever of 101 or Higher, Inability to urinate, Inability to have a bowel movement, Using more than one pad per hour, Shortness of breath, Dizziness, Fainting spells, Chest pain, Increased palpitations (irregular heartbeat), Calf discomfort, Uncontrolled pain Suture Line Care: Avoid Pulling/Pushing Remove Dressing in (days):: 5 - 5 days from section Cleanse incision/area with: Soap & Water Home Medications: Medications to take at Discharge Famotidine [Pepcid] 20 mg PO BID 06/25/18 Loratadine [Claritin] 4 mg PO DAILY PRN PRN 06/25/18 Vits [Prenatabs FA ] 1 tab PO DAILY 06/25/18 Ferrous Sulfate 325 mg PO DAILY #60 tab 07/09/18 Oxycodone HCl/Acetaminophen [Percocet 5-325 mg Tablet] 1 ea PO Q6H PRN PRN 7 Days #28 tab 07/09/18 Following Prescrptions Were Given to Patient: Oxycodone HCl/Acetaminophen [Percocet 5-325 mg Tablet] 1 ea PO Q6H PRN PRN 7 Days #28 tab PRN Reason: Pain Ferrous Sulfate 325 mg PO DAILY #60 tab Primary Care Physician: Care Physician,No Primary [Primary Care Provider] - Please Follow Up With: Keira Bardales DO When: 1 week for incision check. 6 weeks for appointment Patient Instructions: After a , Discharge Instructions for Section () Medical Necessity - Tobacco Use Smoking Status: Current every day smoker Meaningful Use Info Meaningful Use Diagnoses (Choose all that apply): None applicable
== END 2018-07-10 14:02 | disposition home or self-care (01) | DRG 540 ==
PROVIDERS: Obstetrics & Gynecology; Admitting Provider Obstetrics & Gynecology; Visit Provider Obstetrics & Gynecology
DX: O76 Abnormality in fetal heart rate and rhythm complicating labor and delivery (principal); O13.4 Gestational [pregnancy-induced] hypertension without significant proteinuria, complicating childbirth; Z3A.39 39 weeks gestation of pregnancy; Z37.0 Single live birth; O99.334 Smoking (tobacco) complicating childbirth; F17.200 Nicotine dependence, unspecified, uncomplicated
CPT/HCPCS: 59025; 59050; 85027; 86850; 86900; 88307; 99218; J7120; A4216; G0378

== ENCOUNTER 2020-09-01 09:30 | Inpatient (IN) | payer MEDICAID, SELFPAY ==
[2020-09-01] VITALS (16 sets, daily range): BP systolic 90–135; BP diastolic 15–88; PULSE 64–81; RESP 14–20; TEMP 35.6–36.2; O2SAT 97–100; BMI 40.2
[2020-09-01] MEDS: Lactated Ringers 1,000 ML 999 ML IV (09:45)
[2020-09-01 10:09] LABS: Absolute Lymphocyte Count 2.14 X10^3/uL (0.83-4.51); Absolute Neutrophil Count 14.1 X10^3/uL (2.0-7.7); Basophil# 0.05 X10^3/uL; Basophil% 0.3 % (0-1); Eosinophil# 0.07 X10^3/uL; Eosinophils% 0.4 % (0-5); Hematocrit 39.5 % (37-47); Hemoglobin 12.8 g/dL (12.0-15.0); Lymphocyte # 2.14 X10^3/ul (0.83-4.51); Lymphocyte % 12.3 % (19-41); Mean Corp Hgb Conc 32.4 g/dL (32-36); Mean Corpuscular Hgb 27.4 pg (27.0-32.0); Mean Corpuscular Volume 84.6 fL (81-99); Mean Platelet Vol. 11.3 fl (6.2-12.0); Monocyte# 0.93 X10^3/uL; Monocyte% 5.4 % (0-10); NRBC Flagged by Analyzer 0 % (0-5); Neutrophil # 14.05 X10^3/uL (2.7-7.7); Platelet Count 376 K/mm3 (150-450); RBC Distribution Width CV 15.6 % (11.6-14.6); RBC Distribution Width SD 47.8 fl (35.1-43.9); Red Blood Count 4.67 M/mm3 (4.2-5.4); White Blood Count 17.4 K/mm3 (4.4-11.0)
[2020-09-01] MEDS: Acetaminophen 500 MG Tablet 1000 MG PO ×3 (10:45→23:01)
[2020-09-01] MEDS: Lactated Ringers 1,000 ML 150 ML IV (10:45)
--- NOTE | 2020-09-01 11:45 | HP.PCM.OB_ITS ---
HPI - General General Date of Admission: 09/01/20 HPI Narrative ROWENA DE PAZ, is a 34 F who presents for repeat . [facility] Medical History (Updated 09/01/20 @ 10:53 by Lou Alcazar) Back pain affecting Gestational hypertension Home Medications famotidine 20 mg PO BID 06/25/18 [History Last Taken 07/07/18] loratadine [Claritin] 4 mg PO DAILY PRN PRN 06/25/18 [History Last Taken 07/07/18] [id number] [Prenatabs FA ] 1 tab PO DAILY 06/25/18 [History Last Taken 07/07/18] ferrous sulfate 325 mg PO DAILY #60 tab 07/09/18 [Rx Last Taken Unknown] Allergy/AdvReac Type Severity Reaction Status Date / Time bee venom protein (honey bee) Allergy Anaphylaxis Verified 09/01/20 10:41 latex Allergy Rash Verified 09/01/20 10:41 Penicillins Allergy Rash Verified 09/01/20 10:41 prednisone Allergy Anaphylaxis Verified 09/01/20 10:41 Family History Mother Vulva cancer Father Myocardial infarction Grandfather Cancer of vas deferens CVA (cerebral vascular accident) Grandmother CVA (cerebral vascular accident) Surgical History (Updated 09/01/20 @ 11:[address] Shadi Posey MD) Previous section Social History (Updated 09/01/20 @ 10:35 by Lou Alcazar) adopted: No household members: significant other and children housing: apartment number of children: 1 Smoking Status: Former smoker Tobacco: How many years used: 7 (quit 2019) second hand exposure: Yes (boyfriend smoke but not in the house) History Elective abortions Hx Para 1 Spontaneous abortions Hx # Term Pregnancies Ectopic pregnancies Hx # Pregnancies Multiple births # of living children Vital Signs Vital Signs Vital Signs: 09/01/20 10:39 Temperature 96.9 F L Temperature Source Temporal Pulse Rate 77 Respiratory Rate 18 Blood Pressure 135/88 H Blood Pressure Mean 103 Blood Pressure Source Monitor Blood Pressure Position Semi-Fowlers Blood Pressure Location Right Arm Pulse Ox 98 Oxygen Delivery Method Room Air Physical Exam Const alert, oriented x3 and no apparent distress Chest inspection of chest normal Resp normal respiratory effort GI soft to palpation, non-tender and non-distended GI Narrative: Gravid Assessment & Plan (1) Previous section: PLAN: Admit to L&D Proceed with repeat section Informed consent signed after discussing R/B/A Pre-op ancef Routine care
[2020-09-01] MEDS: Sodium Citrate/Citric Acid 30 ML UDC PO (11:47)
[2020-09-01] MEDS: Cefazolin 2 GM in 0.9% Normal Saline 100 ML IV (11:50)
--- NOTE | 2020-09-01 13:22 | OP.PCM_ITS ---
Maternal Data Information Final LISA: 09/06/20 Details Operative Information Date of Procedure: 09/01/20 Pre-Operative Diagnosis: Prior section Post-Operative Diagnosis: Same Indications for : Repeat Elective Classification: Scheduled Procedure Type: low transverse risk management analyst #1: Geovanna Bacon Type of Anesthesia: Spinal Antibiotic Given: Ancef 2 grams IV x1 Estimated Blood Loss: 800ml Fluids Replaced: 1500ml Findings Description of Procedure: Patient was taken the operating room she was given spinal anesthesia. She was then placed in the dorsal supine position. She was prepped and draped in the normal sterile fashion. Anesthesia was found to be adequate. A pfannenstiel skin incision was made with a scalpel and was carried down to the underlying layer of the fascia. The fascial incision was then extended laterally using curved Flower scissors. The fascia was dissected off of the rectus muscle. Rectus muscles were then in the midline bluntly and peritoneum was entered bluntly. At this time the vesicouterine peritoneum was identified and bladder flap taken down using metzenbaum scissors. A scalpel was used to make a uterine incision in a low transverse fashion. The uterus was then entered bluntly by using gentle opposing traction to extend this incision. Membranes were ruptured. Infant's head was brought to the uterine incision was delivered atraumatically with good fundal pressure. The head was gently guided to allow delivery of the anterior and posterior shoulders. No excess traction placed on the head. Body delivered and 3VC was clamped and cut in delayed fashion. was handed to the waiting hotel controller. The Placenta was removed from the uterus. The uterus was then removed from the abdominal cavity and was cleared of all clots and debris. At this time the uterine incision was reapproximated using #1 vicryl in a running locked fashion. Followed by a second layer of monocryl. Hemostasis was appreciated. Uterus was placed back in the abdominal cavity. Pelvis was irrigated and cleared of clots & debris. Uterine incision was reevaluated and noted to be of excellent hemostasis. Sherrell placed over dendued areas. At this time the peritoneum and muscle were reapproximated using Vicryl suture in a running fashion. Fascia was then reapproximated using looped PDS in a running fashion. Subcutaneous layer was reapproximated in an interrupted fashion. Subcuticular layer was closed using 4-0 Monocryl in a running fashion. Dry sterile dressing was applied. Instrument lap needle count correct ?2. Times Start:12:12 Stop: 13:08 Presentation: Positive for Vertex Amniotic Membrane Rupture Type: Artificial Amniotic Fluid Description: Clear Placental Delivery Description: Manual Removal Placenta Disposition: [facility] Cord Vessel Description: 3 Vessels Cord Entanglement: None A Gender: Male (1 minute): 8 (5 minute): 9 Delayed Cord Clamping: Yes
[2020-09-01] MEDS: Oxytocin 30 units/NS 500 ml 30 UNITS/500 ML IV.SOLN 167 UNITS IV (13:25)
[2020-09-01] MEDS: Ketorolac 30 MG/ML Syringe IV ×2 (13:45→20:33)
[2020-09-01] MEDS: Nalbuphine 10 MG/ML Ampul 5 MG IV ×2 (15:20→15:25)
[2020-09-01] MEDS: Lactated Ringers 1,000 ML 100 ML IV (16:49)
--- NOTE | 2020-09-01 18:58 | NURSING ---
per orders from Sara Bacon, steri strips placed over right side of incision and new sliver mepilex placed over incision. Will continue to monitor.
[2020-09-01] MEDS: Loratadine 10 MG Tablet 5 MG PO (23:01)
[2020-09-02] VITALS (9 sets, daily range): BP systolic 100–140; BP diastolic 42–86; PULSE 68–83; RESP 14–18; TEMP 36.1–36.2; O2SAT 97–98
[2020-09-02] MEDS: Enoxaparin 40 MG/0.4 ML Syringe SC ×2 (02:11→22:09)
[2020-09-02] MEDS: Ketorolac 30 MG/ML Syringe IV ×2 (02:11→07:49)
--- NOTE | 2020-09-02 03:46 | PCM.PROGNOTE ---
Subjective Subjective: Doing well per patient and nursing staff. Ambulating and taking PO. Quinn removed, feeling like she needs to urinate at this time. Denies headache, visual changes, chest pain, Shortness of breath, leg pain, increased vaginal bleeding. Pain intermittently, toradol for control. Objective Data Objective Data Vital Signs: Vital Signs Temp Pulse Resp BP Pulse Ox 96.9 F L 76 16 103/42 L 98 09/01/20 21:20 09/02/20 02:14 09/02/20 02:14 09/02/20 00:22 09/02/20 02:14 Oxygen Delivery Method Room Air Weight: 227 lb 1.218 oz Body Mass Index (BMI) 40.2 Intake & Output: Intake and Output for Last 24 Hours 08/31/20 09/01/20 09/02/20 23:59 23:59 23:59 Intake Total 2272.5 / 2272.5 1000 / 1000 Output Total 500 / 500 Balance 1772.5 / 1772.5 1000 / 1000 Lab / Micro Data Result Diagrams: 09/01/20 09:45 Labs: Laboratory Results - last 24 hr 09/01/20 09/01/20 09:45 09:45 WBC 17.4 H RBC 4.67 Hgb 12.8 Hct 39.5 MCV 84.6 MCH 27.4 MCHC 32.4 RDW Std Deviation 47.8 H RDW Coeff of Haley 15.6 H Plt Count 376 MPV 11.3 Immature Gran % (Auto) 0.600 Neut % (Auto) 81.0 H Lymph % (Auto) 12.3 L [place] % (Auto) 5.4 Eos % (Auto) 0.4 Baso % (Auto) 0.3 Absolute Neuts (auto) 14.1 H Absolute Lymphs (auto) 2.14 Nucleated RBC % 0 Blood Type O POSITIVE Antibody Screen NEGATIVE Physical Exam Const alert and oriented x3 General Appearance: cooperative Orientation / Consciousness: awake, oriented to person, oriented to place and oriented to time Exam Limitations: no limitations HEENT normocephalic Head and Scalp: normal to inspection, normocephalic and atraumatic Face and Sinus: normal facial exam Eyes General Eye: normal appearance of both eyes Neck full ROM Chest Chest: symmetrical chest wall rise Resp normal respiratory effort and normal air movement Auscultation: clear to auscultation bilaterally Cardio regular rate, regular rhythm, S1 normal heart sound, S2 normal heart sound, no murmurs, no rub, no gallops and no clicks GI GI Narrative: Fundus firm 2 below U. Dressing dry and intact. Appropriately tender. Auscultation: hypoactive bowel sounds appearance of the vagina normal Bladder / Kidney Exam: no CVA tenderness Back/Spine normal ROM Extremity normal to inspection and full ROM Skin no rashes or lesions noted Neuro oriented x3, CN's II-XII intact bilaterally and moves all extremities Sensorium / Orientation: awake, alert and oriented to person Motor Exam: clonus absent Deep Tendon Reflexes: Rt Patellar (L4): 2+ and Lt Patellar (L4): 2+ Assessment & Plan Assessment/Plan (1) S/P repeat low transverse : PLAN: POD #1 (2) Lactating mother: PLAN: 1) Routine postoperative and care 2) Awaiting repeat am CBC 3) Vital signs stable 4) Pain management 5) Quinn D/C'd 6) Up out of bed this am 7)Planning D/C home tomorrow
[2020-09-02] MEDS: Acetaminophen 500 MG Tablet 1000 MG PO ×4 (05:00→23:03)
[2020-09-02 05:12] LABS: Hematocrit 30.9 % (37-47); Hemoglobin 10.1 g/dL (12.0-15.0); Mean Corp Hgb Conc 32.7 g/dL (32-36); Mean Corpuscular Hgb 28.1 pg (27.0-32.0); Mean Corpuscular Volume 85.8 fL (81-99); Mean Platelet Vol. 10.7 fl (6.2-12.0); Platelet Count 247 K/mm3 (150-450); RBC Distribution Width CV 15.6 % (11.6-14.6); White Blood Count 13.1 K/mm3 (4.4-11.0)
[2020-09-02] MEDS: Senna/Docusate Sodium 1 Tablet PO ×2 (10:28→22:09)
[2020-09-02] MEDS: Loratadine 10 MG Tablet PO (10:28)
[2020-09-02] MEDS: Ibuprofen 600 MG Tablet PO ×2 (14:42→20:06)
[2020-09-02] MEDS: oxyCODONE 5 MG Tablet PO ×3 (15:07→22:09)
[2020-09-02] MEDS: Fluticasone 0.05% 1 SPRAY NASAL.SRY NASAL ×2 (16:24→22:10)
--- NOTE | 2020-09-02 16:42 | NURSING ---
Pt has been up walking around in room. Pt c/o pain at 5 on a scale 1-10. Will recheck blood pressure after patient has rested in bed.
[2020-09-02] MEDS: guaiFENesin 600 MG Tablet PO (22:10)
[2020-09-03 02:06] VITALS: BP 105/55; PULSE 79; RESP 18; TEMP 36.1
[2020-09-03] MEDS: Ibuprofen 600 MG Tablet PO ×2 (02:19→08:24)
[2020-09-03] MEDS: Acetaminophen 500 MG Tablet 1000 MG PO ×2 (05:02→11:56)
[2020-09-03] MEDS: oxyCODONE 5 MG Tablet PO ×2 (05:14→11:55)
[2020-09-03] MEDS: Senna/Docusate Sodium 1 Tablet PO (08:25)
[2020-09-03 08:58] VITALS: BP 115/67; PULSE 74; RESP 18; TEMP 36.4; O2SAT 97
--- NOTE | 2020-09-03 11:40 | PCM.DC ---
Discharge Instructions Diet Discharge Diet: No restrictions Activity Discharge Activity: May not drive while taking narcotic pain medications. and May Shower May resume sexual activity in: 6 weeks Weight Bearing Status: Full weight bearing Dressing / Incision Call your doctor if your incision/area has: Continuous Slow Oozing, Sudden Increased Bleeding, Increased Pain/ Swelling, Increased Redness, Foul Smelling Discharge and Swelling at the incision site Call your doctor if you observe: Fever of 101 or Higher, Change in Color, Inability to urinate, Inability to have a bowel movement, Using more than one pad per hour, Shortness of breath, Chest pain, Increased palpitations (irregular heartbeat), Calf discomfort and Uncontrolled pain Suture Line Care: Avoid Pulling/Pushing Remove Dressing in: 1 week Cleanse incision/area with: Keep Dressing Clean & Dry Follow Up Care Please Follow Up With: Sara Bacon APRN, CNM When: 1 week in office for incision check and blood pressure check Test Results: Test results from this visit will be discussed in further detail at your follow-up appointment, if applicable. Discharge Plan Admission Admit Date/Time: 09/01/20 09:30 Primary Reason for Your Visit: Repeat LTCS Attending Provider: Shadi Posey Primary Care Provider: Care Physician,No Primary Instructions Patient Instructions: After a , at Home Discharge Orders/Prescriptions Prescriptions: New sennosides-docusate sodium [Stool Softener-Stimulant Laxat] 8.6-50 mg Tablet 1 - 2 tab PO BID 7 Days Qty: 30 RF: 0 Continued Claritin RediTabs 5 MG tablet,disintegrating 4 mg PO DAILY PRN PRN (Reason: Allergies) RF: 0 Prenatabs FA 1 TABLET tablet 1 tab PO DAILY RF: 0 Discontinued amoxicillin 875 mg tablet RF: 0 omeprazole 10 mg Capsule,Delayed Release(Dr/Ec) RF: 0 aspirin [Baby Aspirin] 81 mg Tablet,Chewable 1 tab PO DAILY RF: 0 ondansetron [Zofran ODT] 4 mg Tablet,Disintegrating 4 mg PO Q6H PRN (Reason: Nausea) RF: 0 Referrals / Follow Up: Shadi Posey MD [STAFF PHYSICIAN] - Care Physician,No Primary [Primary Care Provider] - Disposition Disposition (needs filled in before D/C Order can be placed): Home, self care
--- NOTE | 2020-09-03 11:54 | PCM.PN.OB ---
Subjective Subjective: Doing well per patient and nursing staff. Ambulating and taking PO without difficulty. Voiding and passing flatus, bowel movement yesterday. Pain controlled but increased discomfort due to cough from allergies. Denies any headaches, visual changes, chest pain, shortness of breath, leg pain, or increased vaginal bleeding or clots. without difficulty. Planning D/C home today. Objective Data Objective Data Vital Signs: Vital Signs Temp Pulse Resp BP Pulse Ox 97.5 F L 74 18 115/67 97 09/03/20 08:58 09/03/20 08:58 09/03/20 08:58 09/03/20 08:58 09/03/20 08:58 Oxygen Delivery Method Room Air Weight: 227 lb 1.218 oz Body Mass Index (BMI) 40.2 Intake & Output: Intake and Output for Last 24 Hours 09/01/20 09/02/20 09/03/20 23:59 23:59 23:59 Intake Total 2772.5 / 2772.5 1000 / 1000 Output Total 500 / 500 150 / 150 Balance 2272.5 / 2272.5 850 / 850 Lab / Micro Data Result Diagrams: 09/02/20 05:05 ROS Constitutional Constitutional: Reports systems reviewed and no addt'l complaints, except as documented; Denies headache(s) Eyes Eyes: Denies acute decrease in peripheral vision, blurry vision or change in vision ENT HEENT: Reports systems reviewed and no addt'l complaints, except as documented Cardiovascular Cardiovascular: Denies chest pain or dizziness Respiratory/Chest Respiratory/Chest: Denies cough, dyspnea, dyspnea on exertion, shortness of breath at rest or shortness of breath with exertion Gastrointestinal Gastrointestinal: Denies abdominal pain, diarrhea, nausea or vomiting Genitourinary Genitourinary: Denies abdominal discomfort or movement Musculoskeletal Musculoskeletal: Denies limited range of motion Integumentary Integumentary: Reports systems reviewed and no addt'l complaints, except as documented Neurologic Neurologic: Reports systems reviewed and no addt'l complaints, except as documented Psychiatric Psychiatric: Reports systems reviewed and no addt'l complaints, except as documented Endocrine Endocrinology: Reports systems reviewed and no addt'l complaints, except as documented Hematologic/Lymphatic Hematologic/Lymphatic: Reports systems reviewed and no addt'l complaints, except as documented Allergic/Immunologic Allergic/Immunologic: Reports systems reviewed and no addt'l complaints, except as documented Physical Exam Const alert and oriented x3 General Appearance: cooperative Orientation / Consciousness: awake, oriented to person, oriented to place and oriented to time Exam Limitations: no limitations HEENT normocephalic Head and Scalp: normal to inspection, normocephalic and atraumatic Face and Sinus: normal facial exam Eyes General Eye: normal appearance of both eyes Neck full ROM Chest Chest: symmetrical chest wall rise Resp normal respiratory effort and normal air movement Auscultation: clear to auscultation bilaterally Cardio regular rate, regular rhythm, S1 normal heart sound, S2 normal heart sound, no murmurs, no rub, no gallops and no clicks GI normal to inspection, nondistended, normoactive bowel sounds and non-tender GI Narrative: Dressing dry and intact, no drainage. appearance of the vagina normal Bladder / Kidney Exam: no CVA tenderness Back/Spine normal ROM Extremity normal to inspection and full ROM Skin no rashes or lesions noted Neuro oriented x3, CN's II-XII intact bilaterally, moves all extremities and deep tendon reflexes 2+ bilaterally Sensorium / Orientation: awake, alert and oriented to person Motor Exam: clonus absent Deep Tendon Reflexes: Rt Patellar (L4): 2+ and Lt Patellar (L4): 2+ Assessment & Plan (1) S/P repeat low transverse : (2) Lactating mother: PLAN: 1)Routine postoperative and instructions 2)Oxycodone for pain management 3)BP mildly elevated yesterday due to pain, after pain medication BP decreased and normal range. No history of elevated blood pressure. No signs or preeclampsia and normal range at this time. Reviewed signs of preeclampsia with patient and when to call. She will check BP at home and message office with BP. Will return in 5 days for incision check and BP check in office. 4)Follow up in 6 weeks for PP visit 5)CBC stable 6) D/C home today
== END 2020-09-03 12:22 | disposition home or self-care (01) | DRG 540 ==
PROVIDERS: Admitting Provider Obstetrics & Gynecology; Referring Provider Obstetrics & Gynecology; Visit Provider Obstetrics & Gynecology
PROC: 10D00Z1 Extraction of Products of Conception, Low, Open Approach (ICD-10-PCS; CPT 59514; principal; 2020-09-01 11:45)
DX: O34.211 Maternal care for low transverse scar from previous cesarean delivery (principal); O13.4 Gestational [pregnancy-induced] hypertension without significant proteinuria, complicating childbirth; Z3A.39 39 weeks gestation of pregnancy; Z37.0 Single live birth; Z87.891 Personal history of nicotine dependence
CPT/HCPCS: 85025; 85027; 86850; 86900; 86901; 99218; 99251; J7120; G0378; G0463; J2405